=== PATIENT | male | born 2000 | race Caucasian/White ===

== ENCOUNTER 2022-03-14 12:25 | Emergency (ER) | payer BC ==
[2022-03-14] MEDS ORDERED: HYDROmorphone 1 MG/ML Syringe ONE (12:40)
[2022-03-14] MEDS ORDERED: HYDROmorphone 1 MG/ML Syringe IVPUSH ONE ×4 (12:41→14:03)
[2022-03-14] MEDS ORDERED: Diphtheria,Pertussis(Acell),Tetanus Vaccine 0.5 ML Syringe IM ONE (12:41)
[2022-03-14] MEDS ORDERED: Lactated Ringers 1,000 ML IV ONE (12:42)
[2022-03-14] MEDS ORDERED: cefTRIAXone 1 GM in Sodium Chloride 0.9% 100 ML IV ONE (12:45)
[2022-03-14 12:59] LABS: ANION GAP 15.3 meq/L (7-15); CHLORIDE,CL 100 mmol/L (98-107); ESTIMATED GFR 116 mL/min (>=60); SODIUM,NA 135 mmol/L (136-145)
[2022-03-14] MEDS: Sodium Chloride 0.9% 10 ML Syringe FLUSH PRN ×5 (13:14→13:25)
[2022-03-14] MEDS ORDERED: cefTRIAXone 1 GM Vial IVPUSH SCH (13:15)
[2022-03-14 13:45] LABS: CORONAVIRUS COVID-19 NAA NEGATIVE (NEGATIVE); RESPIRATORY SYNCYTIAL VIR NAA NEGATIVE (NEGATIVE)
[2022-03-14] MEDS ORDERED: Lactated Ringers 1,000 ML IV SCH (14:15)
== END 2022-03-14 14:40 ==
LOC: LL.ED 12:25
DX: T23.202A Burn of second degree of left hand, unspecified site, initial encounter (principal); T23.201A Burn of second degree of right hand, unspecified site, initial encounter; F17.290 Nicotine dependence, other tobacco product, uncomplicated; Z20.822 Contact with and (suspected) exposure to COVID-19; Z23 Encounter for immunization; X10.2XXA Contact with fats and cooking oils, initial encounter
CPT/HCPCS: 0241U; 36415; 71045; 80053; 85025; 90471; 90715; 96361; 96374; 96376; 99283; J0696; J1170; J3490; J7120; 99284